=== PATIENT | female | born 1980 | race Caucasian/White ===

== ENCOUNTER 2016-10-15 11:15 | Observation (INO) | payer OTHER ==
[~2016-10-15] VITALS: Ht 160 cm; Wt 64.4 kg
[2016-10-15 13:56] VITALS: BP 104/67; PULSE 71; RESP 18; TEMP 98.2
== END 2016-10-15 13:30 | disposition home or self-care (01) ==
LOC: SPU 11:15
PROVIDERS: ADMIT Specialist; ATTEND Specialist
DX: O62.9 Abnormality of forces of labor, unspecified (principal); Z3A.38 38 weeks gestation of pregnancy
CPT/HCPCS: 81002; G0378; 96372

== ENCOUNTER 2016-10-16 01:40 | Inpatient (IN) | payer OTHER ==
[~2016-10-16] VITALS: Ht 160 cm; Wt 64.4 kg
[2016-10-16] MEDS ORDERED: OXYTOCIN/NORMAL SALINE 1,000 ML IV SCH (02:25)
[2016-10-16] MEDS ORDERED: LR 1,000 ML IV SCH (02:25)
[2016-10-16] MEDS ORDERED: TERBUTALINE SULFATE 1 MG/ML VIAL SUBCUT ONE (02:30)
[2016-10-16] MEDS ORDERED: NALBUPHINE HCL 10 MG/ML AMP IVP PRN (02:30)
[2016-10-16 03:05] LABS: HEMATOCRIT 33.4 % (36-48); HEMOGLOBIN 11.3 g/dL (12.0-16.0); MEAN CORPUSCULAR HEMOGLOBIN 30 pg (27-31); MEAN CORPUSCULAR HGB CONC 34 % (32-36); MEAN CORPUSCULAR VOLUME 88 fL (79.0-98.0); PLATELET COUNT (AUTO) 230 K/uL (130-430); RED BLOOD CELL COUNT(AUTO) 3.77 MIL/uL (4.2-6.2); RED CELL DISTRIBUTION WIDTH 12.4 % (9.0-15.0); WHITE BLOOD COUNT (AUTO) 11.4 K/uL (4.8-10.8)
[2016-10-16 03:24] LABS: ATYPICAL LYMPHOCYTES % 0 % (0-0); BAND % (MANUAL) 0 % (0-6); BASOPHILS % (MANUAL) 0 % (0-2); EOSINOPHILS % (MANUAL) 1 % (0-7); LYMPHOCYTES % (MANUAL) 14 % (20-46); MONOCYTES % (MANUAL) 7 % (0-11)
[2016-10-16 03:28] VITALS: BP 115/65; PULSE 65; RESP 18; TEMP 98
[2016-10-16] MEDS ORDERED: FENT2mCg/mL-ROPIVA0.2%/NS EPID 150 ML EP ONE (03:33)
[2016-10-16] MEDS ORDERED: FENT2mCg/mL-ROPIVA0.2%/NS EPID 150 ML EP SCH (03:45)
[2016-10-16] MEDS ORDERED: LR 500 ML IV ONE (03:45)
[2016-10-16] MEDS ORDERED: ePHEDrine sulfate 50 MG/ML VIAL IVP PRN (03:45)
[2016-10-16] MEDS ORDERED: OXYCODONE/ACETAMINOPHEN 5-325 TABLET ONE ×2 (13:53→16:43)
[2016-10-16] MEDS ORDERED: OXYTOCIN/NORMAL SALINE 1,000 ML IV ONE (16:10)
[2016-10-16] MEDS ORDERED: HYDROcodone/ACETAMIN 5-325 MG TAB (NORCO/ VICODIN) PO PRN (16:15)
[2016-10-16] MEDS ORDERED: DERMOPLAST SPRAY TP PRN (16:15)
[2016-10-16] MEDS ORDERED: OXYCODONE/ACETAMINOPHEN 5-325 TABLET PO PRN (16:15)
[2016-10-16] MEDS ORDERED: GLYCERIN/WITCH HAZEL (TUCKS PADS) TP PRN (16:15)
[2016-10-16] MEDS ORDERED: LANOLIN 7 GM OINT. TP PRN (16:15)
[2016-10-16] MEDS ORDERED: ANUSOL 1 EA SUPP.RECT (PREPARATION H) RC PRN (16:15)
[2016-10-16] MEDS ORDERED: DOCUSATE SODIUM 100 MG CAPSULE PO PRN (16:15)
[2016-10-16] MEDS ORDERED: HYDROCORTISONE 0.5%, 28.35 GM TOPICAL CREAM TP PRN (16:15)
[2016-10-16] MEDS: IBUPROFEN 600 MG TABLET PO SCH ×2 (18:02→23:48)
[2016-10-16] MEDS: OXYCODONE/ACETAMINOPHEN 5-325 TABLET PO PRN (20:08)
[2016-10-17] MEDS: OXYCODONE/ACETAMINOPHEN 5-325 TABLET PO PRN ×2 (02:54→09:04)
[2016-10-17] MEDS: IBUPROFEN 600 MG TABLET PO SCH ×2 (05:34→11:57)
[2016-10-17 07:51] LABS: HEMATOCRIT 30.5 % (36-48)
== END 2016-10-17 13:20 | disposition home or self-care (01) | DRG 775 ==
LOC: SPU 01:40
PROVIDERS: ADMIT Specialist; ATTEND Specialist
PROC: 10D07Z6 Extraction of Products of Conception, Vacuum, Via Natural or Artificial Opening (ICD-10-PCS; principal; 2016-10-16)
PROC: 0W8NXZZ Division of Female Perineum, External Approach (ICD-10-PCS; 2016-10-16)
PROC: 3E0S3CZ (ICD-10-PCS; 2016-10-16)
PROC: 00HU33Z Insertion of Infusion Device into Spinal Canal, Percutaneous Approach (ICD-10-PCS; 2016-10-16)
PROC: 10907ZC Drainage of Amniotic Fluid, Therapeutic from Products of Conception, Via Natural or Artificial Opening (ICD-10-PCS; 2016-10-16)
DX: O75.89 Other specified complications of labor and delivery (principal); Z3A.38 38 weeks gestation of pregnancy; Z37.0 Single live birth
CPT/HCPCS: 36415; 81002-TC; 85007; 85018-TC; 85027; 86886; 86900; 86901; J3010; J7120